=== PATIENT | male | born 2000 | race Caucasian/White ===

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

== ENCOUNTER 2022-01-24 22:10 | Emergency (ER) | payer MEDICAID, OTHER ==
[~2022-01-24] VITALS: Ht 167.6 cm; Wt 77.1 kg
[2022-01-24 22:32] VITALS: BP 156/88
[2022-01-25] MEDS ORDERED: CEPH-588 PO (01:58)
[2022-01-25 02:00] VITALS: BP 148/82
== END 2022-01-25 02:00 | disposition home or self-care (01) ==
LOC: MED 22:10
DX: L01.00 Impetigo, unspecified (principal)
CPT/HCPCS: 99283